=== PATIENT | female | born 1945 | race Caucasian/White ===

== ENCOUNTER 2016-08-21 17:16 | Emergency (ER) | payer MEDICARE, MEDICAID ==
--- NOTE | 2016-08-21 20:55 | RAD ---
AP VIEW CHEST AP AND OBLIQUE VIEWS RIGHT RIBS 08/21/16 HISTORY: Trauma with chest pain. AP view chest is obtained. The lungs are well aerated. No evidence of active intrathoracic disease s een. No evidence of effusions, pneumonia or pneumothorax seen. AP and oblique views right ribs demonstrate no evidence of right rib fractures, subluxations, or bon y lesions. IMPRESSION: Unremarkable AP view chest and AP and oblique views right ribs. POS: [facility]
== END 2016-08-21 18:50 | disposition home or self-care (01) ==
LOC: MADERS 17:16
DX: R07.89 Other chest pain (principal); E78.5 Hyperlipidemia, unspecified; E11.9 Type 2 diabetes mellitus without complications; M19.90 Unspecified osteoarthritis, unspecified site; M06.9 Rheumatoid arthritis, unspecified

== ENCOUNTER 2016-09-17 15:41 | Emergency (ER) | payer MEDICARE, MEDICAID ==
[~2016-09-17 15:41] MED LIST: Iopamidol 370 76% 100 ML VIAL ONE; Sodium Chloride 0.9% 100 ML BAG ONE
[2016-09-17] MEDS ORDERED: Ketorolac Tromethamine 30 MG/ML VIAL ONE (16:34)
[2016-09-17] MEDS ORDERED: Metoclopramide HCl 10 MG/2 ML VIAL ONE ×2 (16:34→18:06)
[2016-09-17 16:35] LABS: #Basophils 0.1 thou/uL (0.0-0.2); #Eosinphils 0.1 thou/uL (0.0-0.7); #Lymphocytes 2.3 thou/uL (1.20-3.40); #Monocytes 0.6 thou/uL (0.11-0.59); #Neutrophils 5.4 thou/uL (1.40-6.50); %Basophils 0.8 % (0.0-1.0); %Eosinophils 0.9 % (0.0-10.0); %Lymphocytes 27.1 % (21.0-51.0); %Neutrophils 64.3 % (42.0-75.0); Hemoglobin 13.8 g/dL (12.0-16.0); Mean Corpuscular Hemoglobin 29.1 pg (27.0-31.0); Mean Corpuscular Volume 88.1 fl (81.0-99.0); Mean Platelet Volume 7.6 fL (7.4-10.4); Platelet Count 170 thou/uL (130-400); RBC Distribution Width 12.1 % (11.5-14.5); Red Blood Cell (RBC) Count 4.76 mill/uL (4.20-5.40); White Blood Cell (WBC) Count 8.4 thou/uL (4.8-10.8)
[2016-09-17 16:47] LABS: Clarity Clear (Clear); Specific Gravity, Urine 1.015 (1.005-1.030)
[2016-09-17 16:48] LABS: Bacteria/HPF None Seen HPF (None Seen); Bilirubin Negative (Negative); Blood, Urine Trace (Negative); Glucose, Urine (Dipstick) Negative (Negative); Leukocyte Negative (Negative); Nitrite Negative (Negative); Protein, Urine (Dipstick) Negative (Neg-Trace); RBC/HPF 0-3 HPF (0-3); Squamous Epithelial 0-3 HPF (0-3); Urobilinogen 0.2 mg/dL (0.2-1.0); WBC/HPF None Seen HPF (0-3); pH, Urine 5.5 (5.0-9.0)
[2016-09-17 16:50] LABS: ALT (SGPT) 27 U/L (8-55); AST (SGOT) 52 U/L (5-34); Alkaline Phosphatase 68 U/L (40-150); Anion Gap 15 mmol/L (10-20); BUN (Urea Nitrogen) 16 mg/dL (9.8-20.1); Bilirubin, Total 0.6 mg/dL (0.2-1.2); Calc. Creatinine Clearance 0 mL/min (70-130); Calcium 8.9 mg/dL (7.8-10.44); Carbon Dioxide 20 mmol/L (23-31); Chloride 106 mmol/L (98-107); Estimated GFR-MDRD 56; Globulin 3.1 g/dL (2.4-3.5); Glucose 104 mg/dL (80-115); Lipase 44 U/L (8-78); Potassium 3.7 mmol/L (3.5-5.1); Protein, Total 7.1 g/dL (6.0-8.3); Sodium 137 mmol/L (136-145)
[2016-09-17] MEDS ORDERED: metroNIDAZOLE 250 MG TAB ONE (19:16)
[2016-09-17] MEDS ORDERED: Cephalexin 500 MG CAP ONE (19:16)
--- NOTE | 2016-09-17 20:42 | CT ---
CONTRAST ENHANCED ABDOMEN AND PELVIC CT 09/17/16 CLINICAL HISTORY: Abdominal pain. No prior comparison. FINDINGS: There is bilateral prominence of each renal collecting system, moderate in degree. There is wall pro minence of the underdistended urinary bladder. No discrete ureterolithiasis or bladder calculus. The re are loops of inflamed small bowel of the abdomen and pelvis with surrounding mesenteric edema/asc ites. No free air. No portal venous gas. Prior cholecystectomy. There is no acute pathology of the p ancreas. No adrenal mass or focal splenic lesion. Wall thickening of the distal colon noted with div erticula. No consolidation in the lung bases. No acute osseous pathology. IMPRESSION: 1. Findings most consistent with enterocolitis. There is associated intra-abdominal and pelvic fat stranding/ascites. 2. Bilateral prominence of the urinary collecting systems. This is of indeterminate etiology. F ollowup with renal ultrasound may be performed. 3. Nonspecific wall prominence of the underdistended urinary bladder. POS: [facility]
--- NOTE | 2016-09-17 21:21 | RAD ---
LEFT FOOT THREE VIEWS 09/17/16 HISTORY: Pain. COMPARISON: None. FINDINGS: There are calcifications along the intermetatarsal ligament of the great toe. No acute fracture or m alalignment. There is a type III os naviculare. IMPRESSION: 1. No acute fracture or malalignment. 2. Mild interphalangeal joint space narrowing. 3. Calcifications of the intermetatarsal ligament of the great toe suggesting old injury. POS: [facility]
== END 2016-09-17 19:27 | disposition home or self-care (01) ==
LOC: MADERS 15:41
DX: K57.92 Diverticulitis of intestine, part unspecified, without perforation or abscess without bleeding (principal); G43.909 Migraine, unspecified, not intractable, without status migrainosus; G89.29 Other chronic pain; M79.671 Pain in right foot; E11.9 Type 2 diabetes mellitus without complications; E78.5 Hyperlipidemia, unspecified; M06.9 Rheumatoid arthritis, unspecified; M19.90 Unspecified osteoarthritis, unspecified site; Z98.890 Other specified postprocedural states
CPT/HCPCS: 36415; 74177; 80053; 81003; 81015; 83690; 85025; 96374; 96375; 96376; J1885; J2765; J7050

== ENCOUNTER 2016-09-21 21:52 | Emergency (ER) | payer MEDICARE, MEDICAID ==
[2016-09-21] MEDS ORDERED: Ondansetron ODT 4 MG TAB ONE (22:41)
[2016-09-21] MEDS ORDERED: Diphenoxylate HCl/Atropine Tablet ONE (22:41)
== END 2016-09-21 23:15 | disposition home or self-care (01) ==
LOC: MADERS 21:52
DX: K52.9 Noninfective gastroenteritis and colitis, unspecified (principal); E11.9 Type 2 diabetes mellitus without complications; E78.5 Hyperlipidemia, unspecified; M06.9 Rheumatoid arthritis, unspecified; Z79.2 Long term (current) use of antibiotics; Z79.891 Long term (current) use of opiate analgesic
CPT/HCPCS: 99283; Q0162

== ENCOUNTER 2016-11-20 14:42 | Outpatient (CLI) | payer MEDICARE, MEDICAID ==
--- NOTE | 2016-11-20 15:30 | RAD ---
THREE VIEWS OF THE LEFT FOOT: DATE: 11/20/16. HISTORY: Left foot pain. FINDINGS: Lisfranc joint is normally aligned. There is no fracture or dislocation seen involving the left mavis t. 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 Small osseous excresc ence at the lateral aspect mid portion of the 1st metatarsal with associated calcifications in the s ubcutaneous tissues are again seen and probably related to prior injury. There has been no interval change when compared to the prior exam on 09/17/16. IMPRESSION: No acute osseous abnormality of the left foot. Views of left foot are stable compared to the prior exam. POS: [facility]
== END 2016-11-20 14:43 | disposition home or self-care (01) ==
LOC: MADRAD 14:42
PROVIDERS: ATTEND Physician Assistant
DX: T14.90 Injury, unspecified (principal)

== ENCOUNTER 2019-03-20 00:32 | Emergency (ER) | payer MEDICARE, MEDICAID ==
[2019-03-20] MEDS ORDERED: Pantoprazole 40 MG VIAL ONE (00:55)
[2019-03-20] MEDS ORDERED: Sodium Chloride 0.9% 1,000 ML ONE (00:55)
[2019-03-20] MEDS ORDERED: Loperamide HCl 2 MG CAP ONE (00:55)
[2019-03-20 01:07] LABS: #Basophils 0.1 thou/uL (0.0-0.2); #Lymphocytes 1.6 thou/uL (1.20-3.40); #Monocytes 0.3 thou/uL (0.11-0.59); #Neutrophils 9.6 thou/uL (1.40-6.50); %Basophils 0.6 % (0.0-1.0); %Eosinophils 0.2 % (0.0-10.0); %Monocytes 2.6 % (0.0-10.0); %Neutrophils 82.7 % (42.0-75.0); Mean Corpuscular Hemoglobin 28.6 pg (27.0-31.0); Mean Platelet Volume 8.4 fL (7.4-10.4); Platelet Count 189 thou/uL (130-400); RBC Distribution Width 12.1 % (11.5-14.5); Red Blood Cell (RBC) Count 5.25 mill/uL (4.20-5.40); White Blood Cell (WBC) Count 11.6 thou/uL (4.8-10.8)
[2019-03-20 01:20] LABS: ALT (SGPT) 12 U/L (8-55); AST (SGOT) 21 U/L (5-34); Albumin 4.8 g/dL (3.4-4.8); Alkaline Phosphatase 59 U/L (40-110); Anion Gap 14 mmol/L (10-20); BUN (Urea Nitrogen) 22 mg/dL (9.8-20.1); Bilirubin, Total 0.7 mg/dL (0.2-1.2); Calc. Creatinine Clearance 0 mL/min (70-130); Calcium 9.9 mg/dL (7.8-10.44); Carbon Dioxide 22 mmol/L (23-31); Chloride 107 mmol/L (98-107); Estimated GFR-MDRD 48; Globulin 3.2 g/dL (2.4-3.5); Glucose 145 mg/dL (83-110); Potassium 3.9 mmol/L (3.5-5.1); Sodium 139 mmol/L (136-145)
== END 2019-03-20 05:10 | disposition home or self-care (01) ==
LOC: MADERS 00:32
DX: K52.9 Noninfective gastroenteritis and colitis, unspecified (principal); E11.9 Type 2 diabetes mellitus without complications; E78.5 Hyperlipidemia, unspecified; M19.90 Unspecified osteoarthritis, unspecified site; M06.9 Rheumatoid arthritis, unspecified
CPT/HCPCS: 80053; 85025; 96361; 96374; C9113; J7050

== ENCOUNTER 2022-04-15 14:27 | Emergency (ER) | payer OTHER, MEDICAID ==
[2022-04-15] MEDS ORDERED: Acetaminophen 500 MG TAB ONE (16:16)
[2022-04-15 16:33] LABS: #Basophils 0.1 thou/uL (0.0-0.2); #Lymphocytes 2.2 thou/uL (1.20-3.40); #Monocytes 0.5 thou/uL (0.11-0.59); %Basophils 1.4 % (0.0-1.0); %Eosinophils 0.8 % (0.0-10.0); %Lymphocytes 38.2 % (21.0-51.0); %Monocytes 8.1 % (0.0-10.0); %Neutrophils 51.6 % (42.0-75.0); Hemoglobin 13.5 g/dL (12.0-16.0); Mean Corpuscular HGB CONC 32.9 g/dL (32.0-36.0); Mean Corpuscular Hemoglobin 29.5 pg (27.0-31.0); Mean Corpuscular Volume 89.5 fl (78.0-98.0); Mean Platelet Volume 7.7 fL (7.4-10.4); Platelet Count 202 10x3/uL (130-400); RBC Distribution Width 12.3 % (11.5-14.5); Red Blood Cell (RBC) Count 4.57 mill/uL (4.20-5.40); White Blood Cell (WBC) Count 5.8 10x3/uL (4.8-10.8)
[2022-04-15 16:47] LABS: ALT (SGPT) 12 U/L (8-55); AST (SGOT) 22 U/L (5-34); Albumin 4.3 g/dL (3.4-4.8); Alkaline Phosphatase 50 U/L (40-110); Anion Gap 11 mmol/L (10-20); BUN (Urea Nitrogen) 14 mg/dL (9.8-20.1); Bilirubin, Total 0.4 mg/dL (0.2-1.2); Calc. Creatinine Clearance 0 mL/min (70-130); Calcium 9.5 mg/dL (7.8-10.44); Carbon Dioxide 27 mmol/L (23-31); Chloride 108 mmol/L (98-107); Estimated GFR 56; Globulin 2.9 g/dL (2.4-3.5); Glucose 116 mg/dL (83-110); Potassium 4.8 mmol/L (3.5-5.1); Protein, Total 7.2 g/dL (5.8-8.1); Sodium 141 mmol/L (136-145)
== END 2022-04-15 17:24 | disposition home or self-care (01) ==
LOC: MADERS 14:27
DX: U07.1 COVID-19 (principal); S43.401A Unspecified sprain of right shoulder joint, initial encounter; E11.9 Type 2 diabetes mellitus without complications; E78.5 Hyperlipidemia, unspecified; Z79.899 Other long term (current) drug therapy; W19.XXXA Unspecified fall, initial encounter
CPT/HCPCS: 36415; 70450; 71045; 80053; 84484; 85025; 87804; 93005; U0003; U0005

== ENCOUNTER 2022-10-22 03:46 | Emergency (ER) | payer OTHER ==
[2022-10-22 04:16] LABS: #Lymphocytes 1.3 thou/uL (1.20-3.40); #Monocytes 0.2 thou/uL (0.11-0.59); #Neutrophils 10.1 thou/uL (1.40-6.50); %Basophils 0.4 % (0.0-1.0); %Lymphocytes 10.9 % (21.0-51.0); %Monocytes 1.8 % (0.0-10.0); %Neutrophils 86.9 % (42.0-75.0); Hematocrit 42.5 % (36.0-47.0); Hemoglobin 14.1 g/dL (12.0-16.0); Mean Corpuscular HGB CONC 33.2 g/dL (32.0-36.0); Mean Corpuscular Volume 90.4 fl (78.0-98.0); Mean Platelet Volume 9.5 fL (7.4-10.4); Platelet Count 165 10x3/uL (130-400); RBC Distribution Width 12.4 % (11.5-14.5); White Blood Cell (WBC) Count 11.6 10x3/uL (4.8-10.8)
[2022-10-22 04:36] LABS: ALT (SGPT) 15 U/L (8-55); AST (SGOT) 24 U/L (5-34); Albumin 4.7 g/dL (3.4-4.8); Alkaline Phosphatase 50 U/L (40-110); Anion Gap 19 mmol/L (10-20); BUN (Urea Nitrogen) 14 mg/dL (9.8-20.1); Bilirubin, Total 0.9 mg/dL (0.2-1.2); Calc. Creatinine Clearance 0 mL/min (70-130); Calcium 9.1 mg/dL (7.8-10.44); Carbon Dioxide 19 mmol/L (23-31); Chloride 105 mmol/L (98-107); Estimated GFR 59; Globulin 2.6 g/dL (2.4-3.5); Glucose 155 mg/dL (83-110); Lipase 41 U/L (8-78); Magnesium 1.8 mg/dL (1.6-2.6); Potassium 3.7 mmol/L (3.5-5.1); Protein, Total 7.3 g/dL (5.8-8.1); Sodium 139 mmol/L (136-145)
[2022-10-22] MEDS ORDERED: Metoclopramide HCl 10 MG/2 ML VIAL ONE (05:00)
[2022-10-22] MEDS ORDERED: diphenhydrAMINE 50 MG/ML VIAL ONE (05:00)
[2022-10-22 05:07] LABS: CKMB 0.9 ng/mL (0-6.6)
[2022-10-22] MEDS ORDERED: Sodium Chloride 0.9% 100 ML ONE (05:35)
[2022-10-22] MEDS ORDERED: Cefepime 2 GM VIAL ONE (05:35)
[2022-10-22 05:39] LABS: Bilirubin Negative (Negative); Blood, Urine Small (Negative); Clarity Clear (Clear); Glucose, Urine (Dipstick) Negative (Negative); Ketone, Urine 80 mg/dL (Negative); Leukocyte Negative (Negative); Nitrite Negative (Negative); Protein, Urine (Dipstick) 100 mg/dL (Neg-Trace); Urobilinogen 0.2 mg/dL (Less than 2)
[2022-10-22 05:40] LABS: CAUTI Indications for Culture Dysuria,urgency,freq; Squamous Epithelial 0-3 HPF (0-3); WBC/HPF 0-3 HPF (0-3)
[2022-10-22 05:41] LABS: Urine Culture Reflex No No
[2022-10-22 05:48] LABS: Amphetamine Not Detected (NotDetected); Barbiturates Screen Not Detected (NotDetected); Benzodiazepine Screen Not Detected (NotDetected); Cocaine Metabolite Screen Not Detected (NotDetected); Methadone Not Detected (NotDetected); Methamphetamine Not Detected (NotDetected); Opiate Screen Not Detected (NotDetected); Oxycodone Screen Not Detected (NotDetected); Phencyclidine (PCP) Not Detected (NotDetected); THC/Cannabinoid Screen Not Detected (NotDetected); Tricyclic Screen Not Detected (NotDetected)
[2022-10-22 05:52] LABS: Acetaminophen Less than 10 mcg/mL (10.0-30.0); Alcohol Less than 10.0 mg/dL (Less than 10); Salicylate Less than 8.0 mg/dL (15.0-30.0)
[2022-10-22] MEDS ORDERED: Sodium Chloride 0.9% 250 ML 250 ML ONE (05:54)
[2022-10-22] MEDS ORDERED: Vancomycin 1 GM VIAL ONE (05:54)
[2022-10-22] MEDS ORDERED: Ketorolac Tromethamine 30 MG/ML VIAL ONE (06:53)
[2022-10-22 07:11] LABS: Lactic Acid 2.9 mmol/L (0.5-2.2)
[2022-10-22 07:13] LABS: SARS-CoV-2 NAA Rapid Test Not Detected (NotDetected)
[2022-10-22] MEDS ORDERED: Sodium Chloride 0.9% 500 ML ONE (07:15)
[2022-10-22 07:23] LABS: Troponin I 0.673 ng/mL (< 0.028)
[2022-10-22] MEDS ORDERED: Clopidogrel Bisulfate 75 MG TAB ONE (08:06)
[2022-10-22] MEDS ORDERED: Iopamidol 370 76% 100 ML VIAL ONE (09:11)
== END 2022-10-22 08:25 | disposition short-term general hospital (02) ==
LOC: MADERS 03:46
DX: R50.9 Fever, unspecified (principal); R79.89 Other specified abnormal findings of blood chemistry; I21.4 Non-ST elevation (NSTEMI) myocardial infarction; D72.829 Elevated white blood cell count, unspecified; E11.9 Type 2 diabetes mellitus without complications; E78.5 Hyperlipidemia, unspecified
CPT/HCPCS: 0240U; 51701; 70450; 71045; 71260; 74177; 80053; 80306; 80307; 81001; 82553; 83605; 83690; 83735; 83880; 84484 ×2; 85025; 87040; 93005; 96360; 96365; 96367; 96375; 99285; J0692; J1200; J1885; J2765; J3370; J3490; J7030; J7050; Q9967

== ENCOUNTER 2023-01-05 16:27 | Emergency (ER) | payer OTHER, MEDICAID ==
[~2023-01-05 16:27] MED LIST changes: -Sodium Chloride 0.9% 100 ML BAG ONE
[2023-01-05 17:23] LABS: #Basophils 0.1 thou/uL (0.0-0.2); #Lymphocytes 1.5 thou/uL (1.20-3.40); #Monocytes 0.4 thou/uL (0.11-0.59); #Neutrophils 5.8 thou/uL (1.40-6.50); %Basophils 0.9 % (0.0-1.0); %Eosinophils 0.4 % (0.0-10.0); %Lymphocytes 19.5 % (21.0-51.0); %Monocytes 4.7 % (0.0-10.0); %Neutrophils 74.6 % (42.0-75.0); Hematocrit 43.6 % (36.0-47.0); Mean Corpuscular HGB CONC 32.2 g/dL (32.0-36.0); Mean Corpuscular Hemoglobin 29.6 pg (27.0-31.0); Mean Corpuscular Volume 91.9 fl (78.0-98.0); Mean Platelet Volume 9.8 fL (7.4-10.4); Platelet Count 167 10x3/uL (130-400); RBC Distribution Width 12.7 % (11.5-14.5); Red Blood Cell (RBC) Count 4.74 mill/uL (4.20-5.40); White Blood Cell (WBC) Count 7.8 10x3/uL (4.8-10.8)
[2023-01-05 17:35] LABS: ALT (SGPT) 13 U/L (8-55); AST (SGOT) 22 U/L (5-34); Albumin 4.4 g/dL (3.4-4.8); Alkaline Phosphatase 48 U/L (40-110); Anion Gap 13 mmol/L (10-20); BUN (Urea Nitrogen) 13 mg/dL (9.8-20.1); Bilirubin, Total 0.5 mg/dL (0.2-1.2); Calc. Creatinine Clearance 0 mL/min (70-130); Calcium 9.9 mg/dL (7.8-10.44); Carbon Dioxide 26 mmol/L (23-31); Chloride 104 mmol/L (98-107); Estimated GFR 61; Globulin 2.7 g/dL (2.4-3.5); Glucose 119 mg/dL (83-110); Potassium 4.2 mmol/L (3.5-5.1); Protein, Total 7.1 g/dL (5.8-8.1); Sodium 139 mmol/L (136-145)
== END 2023-01-05 21:57 | disposition home or self-care (01) ==
LOC: MADERS 16:27
DX: K59.00 Constipation, unspecified (principal); E11.9 Type 2 diabetes mellitus without complications; E78.5 Hyperlipidemia, unspecified; Z79.899 Other long term (current) drug therapy
CPT/HCPCS: 36415; 74177; 80053; 85025; Q9967

== ENCOUNTER 2023-03-16 20:54 | Emergency (ER) | payer OTHER ==
[2023-03-16 21:37] LABS: Bilirubin Negative (Negative); Blood, Urine Negative (Negative); Clarity Clear (Clear); Glucose, Urine (Dipstick) Negative (Negative); Ketone, Urine Negative (Negative); Leukocyte Negative (Negative); Nitrite Negative (Negative); Protein, Urine (Dipstick) Negative (Neg-Trace); Urobilinogen 0.2 mg/dL (Less than 2); pH, Urine 8.5 (5.0-9.0)
[2023-03-16 21:48] LABS: #Basophils 0.1 thou/uL (0.0-0.2); #Lymphocytes 1.8 thou/uL (1.20-3.40); #Monocytes 0.5 thou/uL (0.11-0.59); %Basophils 0.6 % (0.0-1.0); %Eosinophils 0.1 % (0.0-10.0); %Lymphocytes 14.4 % (21.0-51.0); %Monocytes 3.9 % (0.0-10.0); %Neutrophils 81.1 % (42.0-75.0); Hematocrit 43.4 % (36.0-47.0); Hemoglobin 13.7 g/dL (12.0-16.0); Mean Corpuscular HGB CONC 31.6 g/dL (32.0-36.0); Mean Corpuscular Hemoglobin 29.7 pg (27.0-31.0); Mean Platelet Volume 9.5 fL (7.4-10.4); Platelet Count 174 10x3/uL (130-400); RBC Distribution Width 13.5 % (11.5-14.5); Red Blood Cell (RBC) Count 4.62 mill/uL (4.20-5.40); White Blood Cell (WBC) Count 12.4 10x3/uL (4.8-10.8)
[2023-03-16 21:49] LABS: CAUTI Indications for Culture Pelvic or flank pain; RBC/HPF 0-3 HPF (0-3); Squamous Epithelial 0-3 HPF (0-3); WBC/HPF 0-3 HPF (0-3)
[2023-03-16 21:51] LABS: Urine Culture Reflex No No
[2023-03-16 22:08] LABS: ALT (SGPT) 25 U/L (8-55); AST (SGOT) 35 U/L (5-34); Albumin 4.6 g/dL (3.4-4.8); Alkaline Phosphatase 61 U/L (40-110); Anion Gap 17 mmol/L (10-20); BUN (Urea Nitrogen) 14 mg/dL (9.8-20.1); Bilirubin, Total 0.7 mg/dL (0.2-1.2); Calc. Creatinine Clearance 0 mL/min (70-130); Calcium 9.6 mg/dL (7.8-10.44); Carbon Dioxide 22 mmol/L (23-31); Chloride 103 mmol/L (98-107); Estimated GFR 68; Globulin 2.8 g/dL (2.4-3.5); Glucose 156 mg/dL (83-110); Potassium 4.3 mmol/L (3.5-5.1); Protein, Total 7.4 g/dL (5.8-8.1); Sodium 138 mmol/L (136-145)
[2023-03-16] MEDS ORDERED: Sodium Chloride 0.9% 1,000 ML ONE (22:21)
[2023-03-16] MEDS ORDERED: Acetaminophen 500 MG TAB ONE (22:21)
[2023-03-16 22:51] LABS: SARS-CoV-2 NAA Rapid Test Not Detected (NotDetected)
[2023-03-16] MEDS ORDERED: Ibuprofen 200 MG TAB ONE (23:59)
[2023-03-17 00:38] LABS: Lactic Acid 1.8 mmol/L (0.5-2.2)
[2023-03-17] MEDS ORDERED: Acetaminophen 325 MG TAB ONE (02:50)
[2023-03-17] MEDS ORDERED: Sodium Chloride 0.9% 100 ML ONE ×2 (02:51→07:59)
[2023-03-17] MEDS ORDERED: Sodium Chloride 0.9% 1,000 ML ONE (02:51)
[2023-03-17] MEDS ORDERED: Piperacillin/Tazobactam 4.5 GM VIAL ONE (02:51)
[2023-03-17] MEDS ORDERED: dilTIAZem 25 MG/5 ML VIAL ONE ×2 (02:56→04:16)
[2023-03-17 03:26] LABS: Magnesium 1.8 mg/dL (1.6-2.6)
[2023-03-17 03:32] LABS: Troponin I 0.141 ng/mL (< 0.028)
[2023-03-17 05:54] LABS: Troponin I 0.205 ng/mL (< 0.028)
[2023-03-17] MEDS ORDERED: Ibuprofen 200 MG TAB ONE (07:58)
[2023-03-17] MEDS ORDERED: Piperacillin/Tazobactam 3.375 GM VIAL ONE (07:58)
[2023-03-17 08:09] LABS: #Lymphocytes 2.4 thou/uL (1.20-3.40); #Monocytes 0.7 thou/uL (0.11-0.59); #Neutrophils 5.6 thou/uL (1.40-6.50); %Basophils 0.6 % (0.0-1.0); %Lymphocytes 27.2 % (21.0-51.0); %Monocytes 8.1 % (0.0-10.0); %Neutrophils 64.1 % (42.0-75.0); Hematocrit 35.4 % (36.0-47.0); Hemoglobin 11.8 g/dL (12.0-16.0); Mean Corpuscular HGB CONC 33.3 g/dL (32.0-36.0); Mean Corpuscular Hemoglobin 30.8 pg (27.0-31.0); Mean Corpuscular Volume 92.5 fl (78.0-98.0); Mean Platelet Volume 9.3 fL (7.4-10.4); Platelet Count 153 10x3/uL (130-400); RBC Distribution Width 13.6 % (11.5-14.5); Red Blood Cell (RBC) Count 3.82 mill/uL (4.20-5.40); White Blood Cell (WBC) Count 8.7 10x3/uL (4.8-10.8)
[2023-03-17 08:23] LABS: Anion Gap 13 mmol/L (10-20); Globulin 2.1 g/dL (2.4-3.5)
[2023-03-17 08:34] LABS: Troponin I 0.209 ng/mL (< 0.028)
[2023-03-17 08:43] LABS: ALT (SGPT) 56 U/L (8-55); AST (SGOT) 103 U/L (5-34); Albumin 3.7 g/dL (3.4-4.8); Alkaline Phosphatase 55 U/L (40-110); BUN (Urea Nitrogen) 13 mg/dL (9.8-20.1); Bilirubin, Total 0.8 mg/dL (0.2-1.2); Calc. Creatinine Clearance 0 mL/min (70-130); Calcium 8.1 mg/dL (7.8-10.44); Carbon Dioxide 21 mmol/L (23-31); Chloride 106 mmol/L (98-107); Estimated GFR 66; Glucose 102 mg/dL (83-110); Potassium 3.7 mmol/L (3.5-5.1); Protein, Total 5.8 g/dL (5.8-8.1); Sodium 136 mmol/L (136-145)
[2023-03-17] MEDS ORDERED: Vancomycin 1 GM VIAL ONE (08:56)
[2023-03-17] MEDS ORDERED: Vancomycin HCl 500 MG VIAL ONE (08:56)
[2023-03-17] MEDS ORDERED: Sodium Chloride 0.9% 250 ML 250 ML ONE (08:56)
[2023-03-17] MEDS ORDERED: Sodium Chloride 0.9% 500 ML ONE (18:40)
== END 2023-03-17 19:10 | disposition short-term general hospital (02) ==
LOC: MADERS 20:54
DX: A41.9 Sepsis, unspecified organism (principal); R65.20 Severe sepsis without septic shock; R79.89 Other specified abnormal findings of blood chemistry; E11.9 Type 2 diabetes mellitus without complications; E78.5 Hyperlipidemia, unspecified; Z79.899 Other long term (current) drug therapy; Z20.822 Contact with and (suspected) exposure to COVID-19
CPT/HCPCS: 74022; 74177; 80053; 81001; 83605; 83735; 84484 ×2; 85025; 87040; 87804 ×2; U0002; 36415; 96361; 96365; 96366; 96367; 96372; 96375; 96376; J1650; J2543; J3370; J3490; J7030; J7050

== ENCOUNTER 2024-02-14 12:12 | Emergency (ER) | payer MEDICARE, OTHER ==
[2024-02-14 12:59] LABS: #Basophils 0.1 thou/uL (0.0-0.2); #Lymphocytes 1.4 thou/uL (1.20-3.40); #Monocytes 0.4 thou/uL (0.11-0.59); #Neutrophils 13.1 thou/uL (1.40-6.50); %Basophils 0.5 % (0.0-1.0); %Lymphocytes 9.1 % (21.0-51.0); %Monocytes 2.9 % (0.0-10.0); %Neutrophils 87.4 % (42.0-75.0); Hematocrit 44.8 % (36.0-47.0); Hemoglobin 14.2 g/dL (12.0-16.0); Mean Corpuscular HGB CONC 31.7 g/dL (32.0-36.0); Mean Corpuscular Volume 91.4 fl (78.0-98.0); Mean Platelet Volume 8.3 fL (7.4-10.4); Platelet Count 200 10x3/uL (130-400); RBC Distribution Width 11.8 % (11.5-14.5)
[2024-02-14 13:11] LABS: ALT (SGPT) 21 U/L (8-55); AST (SGOT) 36 U/L (5-34); Albumin 4.3 g/dL (3.4-4.8); Alkaline Phosphatase 60 U/L (40-110); Anion Gap 16 mmol/L (10-20); BUN (Urea Nitrogen) 10 mg/dL (9.8-20.1); Bilirubin, Total 0.7 mg/dL (0.2-1.2); Calc. Creatinine Clearance 0 mL/min (70-130); Calcium 9.7 mg/dL (7.8-10.44); Carbon Dioxide 22 mmol/L (23-31); Chloride 104 mmol/L (98-107); Estimated GFR 58; Globulin 3.2 g/dL (2.4-3.5); Glucose 188 mg/dL (83-110); Magnesium 1.9 mg/dL (1.6-2.6); Protein, Total 7.5 g/dL (5.8-8.1); Sodium 138 mmol/L (136-145)
[2024-02-14 14:12] LABS: Bilirubin Negative (Negative); Blood, Urine Trace (Negative); Clarity Clear (Clear); Glucose, Urine (Dipstick) Negative (Negative); Ketone, Urine Trace mg/dL (Negative); Leukocyte Negative (Negative); Nitrite Negative (Negative); Protein, Urine (Dipstick) Trace mg/dL (Neg-Trace); Urobilinogen 0.2 mg/dL (Less than 2); pH, Urine 8.5 (5.0-9.0)
[2024-02-14 14:22] LABS: Bacteria/HPF Rare-Few HPF (None Seen); CAUTI Indications for Culture Alt mental st,lethar; RBC/HPF 0-3 HPF (0-3); Squamous Epithelial 0-3 HPF (0-3); WBC/HPF None Seen HPF (0-3)
[2024-02-14 14:23] LABS: Urine Culture Reflex No No
[2024-02-14] MEDS ORDERED: Sodium Chloride 0.9% 100 ML ONE (15:08)
[2024-02-14] MEDS ORDERED: Piperacillin/Tazobactam 3.375 GM VIAL ONE (15:08)
[2024-02-14 16:09] LABS: Troponin I 0.967 ng/mL (< 0.028)
[2024-02-14] MEDS ORDERED: Sodium Chloride 0.9% 1,000 ML ONE (16:18)
[2024-02-14] MEDS ORDERED: Morphine 4 MG/ML VIAL ONE (16:47)
[2024-02-14] MEDS ORDERED: Ondansetron PF 4 MG/2 ML Vial ONE (16:47)
[2024-02-14] MEDS ORDERED: Enoxaparin 80 MG (0.8 mL) SYRINGE ONE (17:37)
[2024-02-14 17:46] LABS: Acetaminophen Less than 10 mcg/mL (Less than 10); Alcohol Less than 10.0 mg/dL (Less than 10); Amphetamine Not Detected (NotDetected); Barbiturates Screen Not Detected (NotDetected); Benzodiazepine Screen Not Detected (NotDetected); Cocaine Metabolite Screen Not Detected (NotDetected); Methadone Not Detected (NotDetected); Methamphetamine Not Detected (NotDetected); Opiate Screen Not Detected (NotDetected); Oxycodone Screen Not Detected (NotDetected); Phencyclidine (PCP) Not Detected (NotDetected); Salicylate Less than 8.0 mg/dL (Less than 8.0); THC/Cannabinoid Screen Not Detected (NotDetected); Tricyclic Screen Not Detected (NotDetected)
== END 2024-02-14 20:32 | disposition short-term general hospital (02) ==
LOC: MADERS 12:12
DX: R41.82 Altered mental status, unspecified (principal); K52.9 Noninfective gastroenteritis and colitis, unspecified; I21.4 Non-ST elevation (NSTEMI) myocardial infarction; E11.9 Type 2 diabetes mellitus without complications
CPT/HCPCS: 70450; 74177; 80053; 80306; 80307; 81001; 83605; 83735; 83880; 84443; 84484; 85025; 87040; 93005; 96361; 96374; 96375; J1650; J2272; J2405; J2543; J7030; Q9967

== ENCOUNTER 2024-12-20 16:46 | Outpatient (CLI) | payer OTHER | END 2024-12-20 16:47 | disposition home or self-care (01) | LOC: MADRAD 16:46 | PROVIDERS: ATTEND Physician Assistant | DX: M25.561 Pain in right knee (principal); M17.11 Unilateral primary osteoarthritis, right knee ==